=== PATIENT | male | born 1965 | race Caucasian/White ===

== ENCOUNTER 2024-12-21 06:55 | Day surgery (SDC) | payer OTHER ==
[~2024-12-21] VITALS: Ht 172.7 cm; Wt 93.5 kg
[~2024-12-21 06:55] MED LIST: Balanced Salt Epinephrine Irrigation Solution 500 mL IR SCH; Moxifloxacin HCL 0.5 MG/0.1 ML 0.4MLSYR LEFTEYE SCH; Ondansetron 4 MG SoluTab MM PRN; PHENYLEPHRINE\\TROPICAMIDE\\TETRACAINE OPHTHALMIC DILATING SOLN LEFTEYE PRN; Povidone-Iodine 450 DROP/30 ML Solution LEFTEYE SCH; Povidone-Iodine 450 DROP/30 ML Solution ONE; Tetracaine HCl/Pf 0.5% Opth Soln 4 ml ONE; Triamcinolone Inj Susp 40 MG / ML 1ML Vial INJ SCH; Triamcinolone Inj Susp 40 MG / ML 1ML Vial ONE
[2024-12-21] MEDS ORDERED: AMLO5 PO (07:47)
[2024-12-21] MEDS ORDERED: CARV25 PO (07:48)
[2024-12-21] MEDS ORDERED: ABILIFY MYCITE2 M2 PO (07:48)
[2024-12-21] MEDS ORDERED: CHLO25B PO (07:49)
[2024-12-21] MEDS ORDERED: JARDIANCE25 MG PO (07:50)
[2024-12-21] MEDS ORDERED: GABA400 PO (07:51)
[2024-12-21] MEDS ORDERED: LOSA25 PO (07:51)
[2024-12-21] MEDS ORDERED: METF500 PO (07:52)
[2024-12-21] MEDS ORDERED: Crestor40 MG PO (07:53)
[2024-12-21] MEDS ORDERED: LEVSOD25 PO (07:53)
[2024-12-21] MEDS ORDERED: VENL150ER PO (07:54)
[2024-12-21] MEDS ORDERED: TRAZ100 PO (07:54)
[2024-12-21] MEDS ORDERED: WEGOVY1 MG/0.5 M SC (07:54)
[2024-12-21] MEDS ORDERED: Tetracaine HCl 0.5% Opth Soln 15 ml LEFTEYE ONE (08:33)
--- NOTE | 2024-12-21 08:39 | NUR ---
12/21/24 0839 Sangeeta Noland N 125/84 98% 10L BLOW BY
[2024-12-21 08:53] VITALS: BP 133/95
== END 2024-12-21 09:10 | disposition home or self-care (01) ==
LOC: ORSCSDS 06:55
PROVIDERS: Ophthalmology
PROC: 08RK3JZ Replacement of Left Lens with Synthetic Substitute, Percutaneous Approach (ICD-10-PCS; principal; 2024-12-21 08:30)
DX: E11.36 Type 2 diabetes mellitus with diabetic cataract (principal); H25.813 Combined forms of age-related cataract, bilateral; H30.10 Unspecified disseminated chorioretinal inflammation; H30.14 Acute posterior multifocal placoid pigment epitheliopathy; H33.322 Round hole, left eye; H50.10 Unspecified exotropia; H44.112 Panuveitis, left eye; Z79.85 Long-term (current) use of injectable non-insulin antidiabetic drugs; Z79.84 Long term (current) use of oral hypoglycemic drugs; Z79.899 Other long term (current) drug therapy
CPT/HCPCS: A9270; J2003; J3301; V2632

== ENCOUNTER 2024-12-28 06:51 | Day surgery (SDC) | payer OTHER ==
[~2024-12-28] VITALS: Ht 172.7 cm; Wt 93.1 kg
[~2024-12-28 06:51] MED LIST changes: +ABILIFY MYCITE2 M2 PO; +AMLO5 PO; +CARV25 PO; +CHLO25B PO; +Crestor40 MG PO; +GABA400 PO; +JARDIANCE25 MG PO; +LEVSOD25 PO; +LOSA25 PO; +METF500 PO; -Moxifloxacin HCL 0.5 MG/0.1 ML 0.4MLSYR LEFTEYE SCH; +Moxifloxacin HCL 0.5 MG/0.1 ML 0.4MLSYR RIGHTEYE SCH; -PHENYLEPHRINE\\TROPICAMIDE\\TETRACAINE OPHTHALMIC DILATING SOLN LEFTEYE PRN; +PHENYLEPHRINE\\TROPICAMIDE\\TETRACAINE OPHTHALMIC DILATING SOLN RIGHTEYE PRN; -Povidone-Iodine 450 DROP/30 ML Solution LEFTEYE SCH; -Povidone-Iodine 450 DROP/30 ML Solution ONE; +Povidone-Iodine 450 DROP/30 ML Solution RIGHTEYE SCH; +TRAZ100 PO; +VENL150ER PO; +WEGOVY1 MG/0.5 M SC
[2024-12-28] MEDS ORDERED: Povidone-Iodine 450 DROP/30 ML Solution ONE (06:52)
[2024-12-28] MEDS ORDERED: FOLI1 PO (07:26)
--- NOTE | 2024-12-28 08:37 | NUR ---
12/28/24 0837 Berkley Mcconnell BP: 123/87 HR: 69 SPO2: 97% ON BLOW BY O2
[2024-12-28 08:54] VITALS: BP 121/83
== END 2024-12-28 09:25 | disposition home or self-care (01) ==
LOC: ORSCSDS 06:51
PROVIDERS: Ophthalmology
PROC: 08RJ3JZ Replacement of Right Lens with Synthetic Substitute, Percutaneous Approach (ICD-10-PCS; principal; 2024-12-28 08:30)
DX: H25.811 Combined forms of age-related cataract, right eye (principal); Z96.1 Presence of intraocular lens; H52.201 Unspecified astigmatism, right eye; H35.89 Other specified retinal disorders; H30.92 Unspecified chorioretinal inflammation, left eye; Z79.85 Long-term (current) use of injectable non-insulin antidiabetic drugs; Z79.899 Other long term (current) drug therapy
CPT/HCPCS: A9270; J2003; J3301; V2632